=== PATIENT | female | born 1990 | race Caucasian/White ===

== ENCOUNTER 2022-02-19 00:34 | Day surgery (SDC) | payer OTHER, SELFPAY ==
[2022-02-18 09:45] VITALS: BMI 17.2
--- NOTE | 2022-02-18 09:56 | PC.NURSE ---
Report to the Outpatient Waiting Room, entrance under the green pavilion located off [facility], at time 0600 on date 02/19/22. OR Time: 0730. - You and your visitor will be asked to self-screen and do not enter if you have any COVID symptoms. - Only one visitor and NO children visitors are allowed at this time. - The patient visitor is requested to leave or wait in car when not with patient due to restrictions. - A mask is required within the hospital. Patients may have clear liquids (water, carbonated beverages, clear teas, apple juice) until 3 hours prior to surgery with a maximum of 20 ounces. - No food from midnight until time of surgery Take the following medications with a SIP of water the morning of surgery: N/A Medications to discontinue per physician: N/A Date to take last dose: N/A Please no make-up, nail faroese, hairspray, perfume, deodorant, or body powder the day of surgery. No jewelry (including any body piercings) or valuables the day of surgery, leave them at home. Please take a shower or bath the night before, or the morning of, surgery with an antibacterial soap. Wear comfortable, loose fitting clothing. - Jewelry must be removed prior to entering the operating room. Rings and piercings that are not removed may be cut off. - The hospital will not accept responsibility for valuables. - Please leave all valuables, including medications, at home the day of surgery. If you are going home after surgery, a licensed newspaper delivery driver must drive you home. - NO public transportation without another adult. - We recommend that an adult stay with you for 24 hours following discharge. - We also recommend that you do not drive, make important decision, drink alcoholic beverages, or take any drugs that were not prescribed by your health care provider for at least 24 hours after your discharge time. Follow any additional instructions given to you from your surgeon. If you or anyone in your household have experienced Covid symptoms in the past week, please notify your surgeon or the nurse liaison at the phone number below for possible testing. Telephone instructions given to PT- FELICIANO and asked if any additional questions and then verbalized understanding. Patient advised to call surgeon office or pre surgery nurse liaison [phone] if any additional questions.
--- NOTE | 2022-02-18 11:20 | P.PNAN_ITS ---
Anes - Initial Pre Proc Eval Procedure: Operation Date: 02/19/22 07:30 Proposed Procedures p Diagnostic Laparoscopy with Chromopertubation - Ge Mae MD Date/Time: 02/18/22 11:20 Surgeon: Ge Mae MD Pre Op Diagnosis: pelvic pain Patient Data Age: 31 Gender: F Height: 1.7 m Weight: 49.9 kg Allergies Allergy/AdvReac Type Severity Reaction Status Date / Time No Known Allergies Allergy Verified 02/19/22 06:27 Home Medications Medication Instructions Recorded Confirmed Type No Home Medications 02/18/22 02/19/22 History Patient hx anesthesia problems: none Family hx anesthesia problems: none Results Review: All pre-operative results and documents have been reviewed as part of the pre- operative evaluation. [facility] Social History Social History Smoking status: Never smoker Alcohol intake: current Drinks per week: 2 Substance use: never Substance use type: does not use Living arrangements: with family Spiritual care concerns: No Anes - Eval Final PreProcedure Day of Procedure 02/18/22 11:20 Patient weight: normal Heart: regular rate and rhythm Lungs: clear to auscultation and normal air movement Airway: Mallampati scale class II Neurological: alert and oriented Last oral intake: >/= 8 hours ASA classification: II Emergent: no Anesthetic plan: proceed Anesthesia type and monitoring: general ETT Results Review: All pre-operative results and documents have been reviewed as part of the pre- operative evaluation. Informed Consent: The patient's anesthetic plan and its attendant risks and benefits were discussed with the patient/family/POA. Questions were solicited and answers provided to the satisfaction of the patient/family/POA.
--- NOTE | 2022-02-18 15:03 | PM.IMHP ---
H&P: HPI History of Present Illness Date/Time: 02/18/22 15:03 Chief Complaint: dysmenorrhea infertility Narrative: 31 yo G0 who presents for diagnostic laparoscopy and chromopertubation for evaluation of dysmenorrhea and infertility. Pt has been trying to conceive for the past 12 months. She reports painful heavy menses. Pt has had an unremarkable pelvic US. Pt reports multiple symptoms of endometriosis. Review of Systems Cardiovascular: Cardiovascular: Denies chest pain, Denies leg edema, Denies palpitations, Denies dyspnea and Denies dyspnea on exertion Respiratory: Respiratory: Denies cough, Denies dyspnea and Denies dyspnea on exertion Gastrointestinal: Gastrointestinal: Denies abdominal pain, Denies constipation, Denies diarrhea, Denies nausea and Denies vomiting Genitourinary: Genitourinary: Denies hematuria, Denies urinary frequency, Denies dysuria, Denies pelvic pain, Denies urinary incontinence and Denies vaginal discharge Neurologic: Reports system reviewed and no additional complaints, except as documented Psychiatric: Psychiatric: Reports no additional psychiatric complaints Endocrine: Endocrine: Denies palpitations [facility] Social History Social History Smoking status: Never smoker Alcohol intake: current Drinks per week: 2 Substance use: never Substance use type: does not use Living arrangements: with family Spiritual care concerns: No Meds Home Medications and Allergies Home Medications Medication Instructions Recorded Confirmed Type No Home Medications 02/18/22 02/18/22 History Allergies Allergy/AdvReac Type Severity Reaction Status Date / Time No Known Allergies Allergy Verified 02/18/22 09:44 Exam Const: General: no acute distress Eyes: EOM: EOMs intact bilaterally Neck: Neck: supple Thyroid: thyroid normal Chest: Breast/axilla inspection: normal inspection of the breasts Breast/axilla palpation: normal palpation of the breasts, normal palpation of the axillae and no axillary lymphadenopathy Resp: Effort & Inspection: normal respiratory effort Auscultation: clear to auscultation bilaterally Cardio: Rate: regular rate Rhythm: regular rhythm GI: Inspection: non-distended GI Palp: Yes Soft to palpation, No Tenderness to palpation present (GI) and No Guarding due to palpation present (GI) Auscultation: normal bowel sounds : General: No bladder normal to palpation External Female Exam: normal external appearance Speculum Exam - Vagina: normal vaginal discharge and No vaginal bleeding Speculum Exam - Cervix: nontender Bimanual exam- vagina & uterus: No bladder normal to palpation and No Cervical tenderness present OB/external & speculum: No vaginal bleeding Skin: General skin exam: normal color and no rashes or lesions noted Neuro: Cognition (Neuro): normal cognition Speech: normal speech Extrem: General: normal to inspection and no edema Psych: Mental Status: mental status grossly normal Affect: normal affect Assessment and Plan Assessment and plan (1) Dysmenorrhea: Code(s): N94.6 - Dysmenorrhea, unspecified Status: Acute Assessment and Plan: Pt reports painful heavy menses pt declines hormonal contraceptives as she would like to conceive Pt symptoms consistent with endometriosis plan for diagnostic laparoscopy with possible fulguration of endometriosis (2) Female infertility: Code(s): N97.9 - Female infertility, unspecified Status: Acute Assessment and Plan: Pt has been trying to conceive for 12 months. will plan for chromopertubation at the time of diagnostic laparoscopy
[2022-02-19] VITALS (9 sets, daily range): BP systolic 89–117; BP diastolic 53–69; PULSE 39–77; RESP 12–16; TEMP 36.2–36.9; O2SAT 100
[2022-02-19] MEDS: ACETAMINOPHEN 500 MG TABLET 1000 MG PO (06:49)
[2022-02-19] MEDS: LACTATED RINGERS 1,000 ML 30 ML IV CONT ×2 (06:51→08:33)
[2022-02-19] MEDS: KETOROLAC 15 MG/ML VIAL (*BKC) IV PUSH (06:53)
[2022-02-19 07:01] LABS: Hematocrit 43.5 % (37.0-47.0); Hemoglobin 14.5 g/dL (12.0-15.0); Mean Corpuscular HGB Conc 33.3 g/dl (32-36); Mean Corpuscular Hemoglobin 32.4 pg (26-34); Mean Corpuscular Volume 97.1 fl (80-100); Mean Platelet Volume 10.1 fl (7.4-10.4); Platelet Count Result 206 k/mm3 (150-375); Red Blood Count 4.48 M/mm3 (4.2-5.4); Red Cell Distribution Width 11.6 % (11.5-14.5); White Blood Count 3.8 K/mm3 (4.5-10.0)
--- NOTE | 2022-02-19 07:18 | WPDHPUPDATE1 ---
History and Physical Update Update Date/Time: 02/19/22 07:18 History and Physical has been reviewed, including an updated exam of the patient. There are NO changes in the patient's condition. Risks, benefits, and alternatives have been discussed and questions answered. Patient agrees to proceed with procedure.
[2022-02-19] MEDS: LIDO 1%/EPINEPHRINE 1:100,000 50 ML VIAL 10 ML INFILTRATE (07:48)
[2022-02-19] MEDS: fentaNYL CITRATE INJ (*CRX) 100 MCG/2 ML VIAL 25 MCG IV PUSH ×4 (08:29→08:57)
--- NOTE | 2022-02-19 08:32 | W.PM.PROC2 ---
Procedure Note - Detailed Date of Procedure 02/19/22 Pre-op Diagnosis pelvic pain dysmenorrhea infertility Post-op Diagnosis Same Procedure Performed diagnostic laparoscopy, fulguration of endometriosis, chromopertubation Surgeon Ge Mae MD Anesthesia General Indications pelvic pain dysmenorrhea infertility Findings approximately 4 small areas of visible gunpowder lesions on the peritoneum in the posterior cul de sac. Normal appearing fallopian tubes and ovaries bilaterally. Normal appearing uterus. Bilateral spill of dye during chromopertubation Description of Procedure The patient was taken to the operating room where general endotracheal anesthesia was undertaken and found to be adequate. She was then prepped and draped in the dorsal lithotomy position and placed in adjustable stirrups. A pre-operative team brief and a time out were completed. A catheter was placed to drain the bladder. Retractors were placed placed in the vagina and the cervix was identified. An acorn uterine manipulator was placed. Attention was then turned to the abdomen which was anesthetized umbilically with injected anesthestic. A 5 mm skin incision was made in the umbilicus. A 5 mm optical trocar was then placed with direct camera visualization of the abdominal layers during placement. The trocar stylet was removed and the camera was used to verify intra-abdominal placement. CO2 insufflation was then connected and resumed. The pelvis was inspected. A left lower quadrant 5 mm port was placed, in addition to a right lower quadrant 5mm port in the standard fashion after using local anesthetic. The abdomen and pelvis were then surveyed. There were 4 small bartolome of superficial gunpowder lesions in the posterior cul de sac. No signs of endometriomas. No adhesive disease visualized. The gunpowder lesions were excised from the peritoneum with cold laparoscopic scissors. Peritoneum specimen was sent for pathology. Minimal bleeding from biopsy sites. The surgical field was thoroughly irrigated using normal saline. All surgical beds were noted to be hemostatic. Additional survey was performed and no further visible lesions were identified. The appendix was visualized and appeared grossly normal. At this point, chromopertubation was performed. A diluted solution of methylene blue was injected through the uterine manipulator. Spill of dye was noted bilaterally from the fallopian tubes. Procedure was ended at this time. Sponge, lap and needle counts were correct. All skin incisions were closed with 4-0 Vicryl suture subcuticularly. The uterine manipulator was removed from the uterus. Hemostasis of the cervix was noted. The urinary catheter was removed. The patient was taken out of dorsal lithotomy position. Anesthesia was reversed. The patient was taken to the PACU. Estimated Blood Loss 10 Urine Output 50 Pathology Yes (peritoneal biopsies) Complications No immediate complications Condition Stable Disposition Same day
[2022-02-19] MEDS: ONDANSETRON INJ 4 MG/2 ML VIAL IV PUSH (09:38)
[2022-02-19] MEDS: SCOPOLAMINE 1.5 MG PATCH TRANSDERM (10:07)
[2022-02-19] MEDS: HALOPERIDOL LACTATE 5 MG/ML VIAL 1 MG IV PUSH (10:07)
--- NOTE | 2022-02-19 11:07 | SUR.PHASEII ---
pt nausea is better and pain is tolerable. discharged home with .
== END 2022-02-19 10:55 | disposition home or self-care (01) ==
PROVIDERS: PCP Internal Medicine; Visit Provider Student in an Organized Health Care Education/Training Program
PROC: (CPT 49320; principal; 2022-02-19 07:30)
DX: R10.2 Pelvic and perineal pain (principal); N94.6 Dysmenorrhea, unspecified; N97.9 Female infertility, unspecified; N80.3 Endometriosis of pelvic peritoneum
CPT/HCPCS: 58662; 36415; 85027; 86850; 86900; 86901; 88305; A9270; J1100; J1630; J1885; J2250; J2405; J2704; J2710; J3010; J7030; J7120; Q9968

== ENCOUNTER 2022-12-21 05:20 | Inpatient (IN) | payer OTHER, SELFPAY ==
[2022-12-21] VITALS (115 sets, daily range): BP systolic 71–164; BP diastolic 25–138; PULSE 48–204; RESP 16; TEMP 36.6–37.2; O2SAT 94–100; BMI 21.4
--- NOTE | 2022-12-21 06:22 | LDADM ---
This patient, Chelsea Siddiqi, was admitted to Labor/Delivery/Recovery 107 on 12/21/22 at 05:20. Plans for labor, pain management and were discussed with patient. Patient/family oriented to hospital policies and general routines including ID bracelet, bed and alarms, visiting hours, pain management, procedures, bathroom and other care routines, personal items, smoking policy, room service/diet and guest tray routines, infant security routines, and visiting hours. Patient/Family are encouraged to report perceived risks to care and to ask questions if they do not understand what they are told or what they should do. See OBIX for further documentation.
[2022-12-21 06:23] LABS: Basophils Percent Auto 0.3 % (0.2-1.2); Eosinophils Absolute Auto 0.1 K/mm3 (0-0.3); Eosinophils Percent Auto 0.6 % (0-4.4); Hematocrit 45.3 % (37.0-47.0); Hemoglobin 15.1 g/dL (12.0-15.0); Immature Granulocyte Absolute 0.04 K/mm3 (0.00-0.031); Immature Granulocyte Percent A 0.4 % (0-0.5); Lymphocytes Absolute Auto 1.41 K/mm3 (0.9-3.2); Lymphocytes Percent Auto 13.6 % (18.3-44.2); Mean Corpuscular HGB Conc 33.3 g/dl (32-36); Mean Corpuscular Hemoglobin 31.5 pg (26-34); Mean Corpuscular Volume 94.6 fl (80-100); Monocytes Absolute Auto 0.5 K/mm3 (0.1-0.6); Monocytes Percent Auto 4.9 % (2.6-8.5); Neutrophils Absolute Auto 8.3 K/mm3 (1.3-6.7); Neutrophils Percent Auto 80.2 % (45.5-73.1); Platelet Count Result 197 k/mm3 (150-375); Red Blood Count 4.79 M/mm3 (4.2-5.4); Red Cell Distribution Width 13.8 % (11.5-14.5); White Blood Count 10.3 K/mm3 (4.5-10.0)
[2022-12-21] MEDS: LACTATED RINGERS 1,000 ML 125 ML IV CONT ×3 (06:25→07:44)
--- NOTE | 2022-12-21 06:45 | WPDANESEPPF ---
Anes - Initial Pre Proc Eval Procedure: Labor Epidural Date/Time: 12/21/22 06:45 Surgeon: Ge Mae MD Pre Op Diagnosis: Labor pain Pre Op Diagnosis: contractions Patient Data Age: 32 Gender: F Height: Weight: Last Vital Signs Pulse 58 L 12/21/22 06:31 BP 93/58 L 12/21/22 06:31 Pulse Ox 100 12/21/22 06:41 O2 Del Method Room Air 12/21/22 06:21 Allergies Allergy/AdvReac Type Severity Reaction Status Date / Time No Known Allergies Allergy Verified 12/17/22 08:24 Home Medications Medication Instructions Recorded Confirmed Type [id number] fum 65 mg 1 pkg PO DAILY 07/12/22 11/26/22 History iron-folic acid 1 mg-dha 250 mg oral whitney Laboratory Tests 12/21/22 06:08 WBC 10.3 H K/mm3 (4.5-10.0) RBC 4.79 M/mm3 (4.2-5.4) Hgb 15.1 H g/dL (12.0-15.0) Hct 45.3 % (37.0-47.0) MCV 94.6 fl (80-100) MCH 31.5 pg (26-34) MCHC 33.3 g/dl (32-36) RDW 13.8 % (11.5-14.5) Plt Count 197 k/mm3 (150-375) MPV 10.0 fl (7.4-10.4) Immature Gran % (Auto) 0.4 % (0-0.5) Neut % (Auto) 80.2 H % (45.5-73.1) Lymph % (Auto) 13.6 L % (18.3-44.2) [place] % (Auto) 4.9 % (2.6-8.5) Eos % (Auto) 0.6 % (0-4.4) Baso % (Auto) 0.3 % (0.2-1.2) Lymph # (Auto) 1.41 K/mm3 (0.9-3.2) [place] # (Auto) 0.5 K/mm3 (0.1-0.6) Eos # (Auto) 0.1 K/mm3 (0-0.3) Baso # (Auto) 0.0 K/mm3 (0.0-0.1) Abs Immat Gran (auto) 0.04 H K/mm3 (0.00-0.031) Absolute Neuts (auto) 8.3 H K/mm3 (1.3-6.7) Absolute Nucleated RBC 0.0 K/mm3 (0.0-0.012) Nucleated RBC % 0.0 % (0.0-0.2) RPR Pending Patient hx anesthesia problems: none Family hx anesthesia problems: none Results Review: All pre-operative results and documents have been reviewed as part of the pre-operative evaluation. [facility] Past Medical History Medical History Suppression of menses Family History Family History Father Diabetes mellitus Legal Guardian No problems noted. 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 Informed Consent: The patient's anesthetic plan and its attendant risks and benefits were discussed with the patient/family/POA. Questions were solicited and answers provided to the satisfaction of the patient/family/POA.
--- NOTE | 2022-12-21 07:05 | WPDANESEPN ---
Anes - Epidural Procedure Note Date/Time: 12/21/22 07:05 Consent: I have discussed with the patient/family/POA, the placement of an epidural catheter and the use of epidural narcotic/local anesthetic for labor analgesia and/or postoperative pain management, including associated potential risks, benefits, complications and side effects. I have discussed alternative methods of labor analgesia and/or postoperative pain management. The patient/family/POA, understand(s) and wish(es) to proceed with epidural narcotic/local anesthetic for labor analgesia and/or postoperative pain management. Time-Out: A pre-procedural Time-Out was completed immediately before starting the procedure and confirmed: Patient Identification, Site, Procedure, Patient Position and the Availability of Requisite Equipment. Clinical Indications: Labor Epidural Epidural Insertion Note Patient position: sitting Skin prep: chlorhexidine and sterile drape Needle: 18g Tuohy-Schliff Catheter: 20g Unstyleted Technique: Loss of resistance. Level of insertion: L3/4 Catheter skin hyacinth (cm): 9 Length in epidural space (cm): 4 Skin anesthesia: lidocaine 1% Test dose: 1.5% Lidocaine with [id number] Epi, negative for subarachnoid Inj and negative for intravascular Inj Time of test dose: 06:57 Observations: tolerated well Complications: none
[2022-12-21] MEDS: PHENYLEPHRINE 1,000 MCG/10 ML SYRINGE 100 MCG IV PUSH (07:28)
[2022-12-21] MEDS: OXYTOCIN 30 UNITS/NS 500 ML 30 UNITS/500 ML BAG 999 UNITS IV CONT (11:53)
--- NOTE | 2022-12-21 12:18 | P.PCNOB_ITS ---
OB - Delivery Note Procedure Intrapartal Events: Decelerations and Ineffetive Pushing/Maternal Exhaustion Induction method: None Delivery augmentation: Rupture of Membranes and Pitocin Delivery monitor: External FHT and External Uterine Route of delivery: Indication for instrumentation: maternal exhaustion Episiotomy description: None Laceration Description: Perineal - 2nd Degree Delivery repair: vicryl and chromic Specimen: No Quantitative Blood Loss (ml): 200 Anesthesia type: Epidural Disposition: Floor Complications: None Narrative: patient prepped usual procedure. Maternal effort brought the baby to +1 position and due to continued bradycardia decelerations vacuum was placed and then pushed for 2 more contractions, at which time the vacuum was removed. One more push delivered the vertex and the rest of baby without difficulty. Cord was clamped cut and baby was passed to the public employment mediator who was in attendance. Placenta delivered spontaneously. Second-degree laceration was noted with partial third-degree extension. Using 0 Vicryl interrupted sutures the rectal sphincter was approximated. Vaginal tissue was then approximated using 2-0 chromic in a running interlocking manner, deep tissue was approximated using 2-0 chromic, and the subcuticular manner was then used to approximate the skin edges. There was no significant bleeding, uterus well contracted. Immediate postoperative condition of mother and baby were both excellent. Baby Weeks of gestation at delivery: 40 gender: Female Weight (pounds): 8 Weight (ounces): 0 presentation: vertex position: Right Occiput Anterior Placenta delivery description: Spontaneous Cord Vessel Description: 3 Vessels score one minute: 8 score five minutes: 9 AMG Delivery Billing Delivery Delivery: Delivery Charge
--- NOTE | 2022-12-21 12:23 | WPDHPUPDATE1 ---
History and Physical Update Update Date/Time: 12/21/22 12:23 History and Physical has been reviewed, including an updated exam of the patient. There are NO changes in the patient's condition. Risks, benefits, and alternatives have been discussed and questions answered. Patient agrees to proceed with procedure.
--- NOTE | 2022-12-21 12:23 | WPDOBADMIT ---
Obstetrics - Admit Note Admission Note: record reviewed. No pertinent additions to the history and/or any subsequent changes in the physical findings that are not consistent with the expected course of the were found. Additions to the history and/or subsequent changes in the physical findings follow. None.
[2022-12-21] MEDS: OXYTOCIN 30 UNITS/NS 500 ML 30 UNITS/500 ML BAG 125 UNITS IV CONT (12:28)
[2022-12-21] MEDS: ACETAMINOPHEN 325 MG TABLET 650 MG PO (14:37)
--- NOTE | 2022-12-21 15:00 | PC.NURSE ---
Patient transferred to post room #280 via wheelchair. Support person present. Oriented to unit, room, information board, rooming in, admission packet and security measures. Patient verbalizes understanding. Per pt request, she would like her vitals and assessment done in an hour so she and baby can rest.
[2022-12-22] MEDS: IBUPROFEN 600 MG TABLET PO (00:11)
[2022-12-22 04:15] VITALS: BP 96/57; PULSE 62; RESP 14; TEMP 36.3; O2SAT 100
[2022-12-22 05:07] LABS: Hemoglobin 11.1 g/dL (12.0-15.0)
[2022-12-22 07:40] VITALS: BP 106/69; PULSE 72; RESP 16; TEMP 36.4; O2SAT 100
[2022-12-22] MEDS: DOCUSATE SODIUM 100 MG CAPSULE PO (07:45)
[2022-12-22] MEDS: MULTIVIT/MIN/PREN/FOL AC/IRON TABLET 1 TAB PO (07:45)
--- NOTE | 2022-12-22 08:01 | WPDANLDPN2 ---
Anes-Prog Note L&D Date/Time: 12/22/22 08:01 Comfortable throughout: labor and delivery Neuraxial method: epidural Epidural/Spinal procedure site: clean & non-tender Neuro status: Neuro function grossly intact. Cardiovascular status: normal Respiratory status: normal Airway patency: baseline Mental status: baseline Post-Op hydration status: normal Vital Signs: Last Vital Signs Temp 97.3 F L 12/22/22 04:15 Pulse 62 12/22/22 04:15 Resp 14 12/22/22 04:15 BP 96/57 L 12/22/22 04:15 Pulse Ox 100 12/22/22 04:15 O2 Del Method Room Air 12/21/22 06:21 Pain score (VAS): 0 I/O: Intake & Output 12/21/22 12/22/22 12/22/22 23:59 07:59 15:59 Intake Total 500 Balance 500 Post-procedural complaints: none Patient feedback: Patient satisfied with anesthetic care.
--- NOTE | 2022-12-22 09:58 | PM.OBDSVD ---
DS: Admitting Diagnosis Discharge Date 12/22/2022 Admitting Diagnosis DS: Discharge Diagnosis Discharge Diagnosis (1) , delivered: Code(s): O80 - Encounter for full-term uncomplicated delivery Status: Acute OB - DS: Summary OB Procedures : None OB Procedures Intrapartum: Spontaneous Vag Delivery OB Procedures: : None Time Spent with Patient Time attestation: Total time spent providing and/or coordinating discharge services: DS: Data Data Completed and Pending Labs on day of discharge: Labs from last 24 hours 12/22/22 04:07 Hgb 11.1 L D Hct 33.0 L Discharge Plan Discharge Discharging Clinician: Alex Moreno Patient Disposition: Home, Self-Care Activity: as tolerated Diet: as tolerated Patient Instructions: Antibiotic Form Stand Alone Forms: General Discharge Information Follow-up/Referrals: Ge Mae MD [Physician] - 3 Weeks Discharge Medications: Continued vit 93-[id number]-[id number]-dha 65-1-250 mg combo pack 1 pkg PO DAILY Date of admission: 12/21/22 05:20 Primary Care Provider: TonyMatthew Admitting Provider: Ge Mae Attending physician on admission: Ge Mae Condition: Stable
--- NOTE | 2022-12-22 13:11 | PC.NURSE ---
Patient viewed the discharge video Mother & Baby Care, The First Two Weeks . Patient was given the opportunity and encouraged to ask questions. Patient verbalized understanding of information shared and has been given the mother/baby guide for home reference.
[2022-12-23 08:05] LABS: Rapid Plasma Reagin Non-Reactive (NonReactive)
[2022-12-23 08:28] VITALS: BP 109/62; PULSE 66; RESP 18; TEMP 36.8; O2SAT 100
== END 2022-12-22 15:50 | disposition home or self-care (01) | DRG 807 ==
LOC: ANHOB2 12-22 10:56 → ANHLDR 12-24 08:14 → ANHOB2 12-24 08:14
PROVIDERS: Admitting Provider Obstetrics & Gynecology; PCP Internal Medicine; Visit Provider Obstetrics & Gynecology
DX: O76 Abnormality in fetal heart rate and rhythm complicating labor and delivery (principal); O70.1 Second degree perineal laceration during delivery; Z37.0 Single live birth; Z3A.40 40 weeks gestation of pregnancy
CPT/HCPCS: 36415; 85014; 85018; 85025; 86592; 86850; 86900; 86901; A9270; J2370; J2590; J2795; J7120

== ENCOUNTER 2024-04-30 10:24 | Outpatient (CLI) | payer OTHER, SELFPAY ==
--- NOTE | ~2024-04-30 | US_ITS ---
EXAMINATION: US OB <=14 wk fetus w TV DATE: 04/30/2024 11:22 INDICATION: Establish dating of first trimester . TECHNIQUE: Real-time pelvic ultrasound utilizing both a transvaginal and transabdominal probe was pe rformed. The interpreting radiologist was not present for the study. COMPARISON: None. FINDINGS: The uterus measures 10.8 x 6.6 x 8.4 cm. There is an intrauterine gestational sac. A yolk sac and fe conchis pole are identified. The crown rump length measures 2.0 cm, which correlates with an estimated ge stational age of 8 weeks and 4 days. heart motion is identified measuring 164 beats per minute (bpm) by M-mode Doppler. The right ovary measures 3.1 x 2.6 x 2.3 cm. The left ovary measures 2.3 x 1.3 x 1.9 cm. Vascular matthias w identified in both ovaries on color Doppler. There is a small amount of anechoic free fluid in the cul-de-sac. IMPRESSION: 1. Single living fetus with heart rate of 164 bpm. 2. Gestational age by ultrasound of 8 weeks 4 day(s) +/- 5 day(s) with ultrasound estimated date of delivery (F[facility]TIM[facility]) of 12/06/2024. Reviewed, dictated and finalized at location A. IMPRESSION: 1. Single living fetus with heart rate of 164 bpm. 2. Gestational age by ultrasound of 8 weeks 4 day(s) +/- 5 day(s) with ultraso und estimated date of delivery (FÁTIMA) of 12/06/2024.
== END 2024-04-30 10:25 | disposition home or self-care (01) ==
PROVIDERS: PCP Internal Medicine; Visit Provider Student in an Organized Health Care Education/Training Program
DX: N94.89 Other specified conditions associated with female genital organs and menstrual cycle (principal)
CPT/HCPCS: 76801; 76817

== ENCOUNTER 2024-10-22 10:19 | Outpatient (CLI) | payer OTHER, SELFPAY ==
--- NOTE | ~2024-10-22 | US_ITS ---
EXAMINATION: US OB follow up DATE: 10/22/2024 10:42 INDICATION: Encounter for supervision of normal during third trimester. TECHNIQUE: Real-time ultrasound of the pelvis was performed. The interpreting radiologist was not pre sent for the study. COMPARISON: None. FINDINGS: There is a single living fetus in vertex presentation. The placenta is anterior and not low-lying. F etal heart rate is 129 beats per minute (bpm). The amniotic fluid index is 17.5 cm, which is normal (5th%-95%: 8.1-24.8 cm at 34 weeks estimated gestational age). The following biometric data were obtained: BPD: 8.8 cm -> 35 weeks 3 days Head circumference: 31.3 cm -> 35 weeks 1 days Abdominal circumference: 30.3 cm -> 34 weeks 2 days Femur length: 6.8 cm -> 34 weeks 6 days These measurements are concordant. Head circumference to abdominal circumference ratio: 1.03 (normal range 0.93-1.11). Estimated weight: 2474 g (+/-) 371 g or 5 lbs. 7 oz. (+/-) 13 oz. IMPRESSION: 1. Single living fetus in vertex presentation with heart rate of 129 bpm. 2. Normal amniotic fluid index of 17.5 cm. 3. Estimated weight is 63rd percentile by Hadlock criteria when 12/03/2024 is used as the estimat ed date of delivery (FÁTIMA). Please correlate with clinical information or earlier ultrasounds for most accurate FÁTIMA. Reviewed, dictated and finalized at location A. IMPRESSION: 1. Single living fetus in vertex presentation with heart rate of 129 bpm. 2. Normal amniotic fluid index of 17.5 cm. 3. Estimated weight is 63rd percentile by Hadlock criteria when 12/03/2024 is used as the estimated date of delivery (FÁTIMA). Please correlate with clinical information or earlier ultrasounds for most accurate FÁTIMA.
== END 2024-10-22 10:20 | disposition home or self-care (01) ==
LOC: MICIMG 10:20
PROVIDERS: PCP Student in an Organized Health Care Education/Training Program; Visit Provider Student in an Organized Health Care Education/Training Program
DX: Z34.90 Encounter for supervision of normal pregnancy, unspecified, unspecified trimester (principal)
CPT/HCPCS: 76816

== ENCOUNTER 2024-12-04 18:51 | Inpatient (IN) | payer OTHER, SELFPAY ==
[2024-12-04] VITALS (74 sets, daily range): BP systolic 84–136; BP diastolic 38–102; PULSE 40–133; O2SAT 70–100; BMI 22.1
--- OUTSIDE RECORDS SUMMARY | 2024-12-04 19:10 | XMS_ITS | Referral Summary ---
Author Organization [facility] [address] Address [address] [place] [address] Phone Care Team Providers Care Lead Nurse Name Role Phone Matthew Pearce MD Primary Care Provider [phone] Hubert Owen MD Unavailable [phone] Allergies No known active allergies Medications cholecalciferol (VITAMIN D-3) 25 mcg (1,000 unit) tablet Take 1 tablet (1,000 Units total) by mouth daily Active omega 7-yhr-wnh-fish oil 60-90-500 mg capsule,delayed release(DR/EC) Take 500 mg by mouth daily Active ciprofloxacin (CILOXAN) 0.3 % ophthalmic solution Administer 1 drop into the left eye every 2 (two) hours Administer 1 drop, every 2 hours, while awake, for 2 days. Then 1 drop, every 4 hours, while awake, for the next 5 days. 5 mL 4 Active Active Problems Problem Noted Date Diagnosed Date Raynaud's disease without gangrene 10/30/2018 Overview (11/06/2018): Labs (10/30/18): low C4 (14) AVISE (10/30/18): negative Assessment & Plan (11/20/2018 12:08 PM CDT): Serologies revealed a slightly low C4 (14), but were otherwise unremarkable. 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 Denies any other CTD symptoms. Based on unremarkable labs, symptoms do not appear to be related to any underlying CTD. Recommend patient follow with dermatology for biopsy of her rash. Follow up as needed for any new or worsening symptoms. Seen with Dr. Owen. 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 Reports her fingers and toes go numb in the cold and recently her fingers turned white. Has seen dermatology who have not done a biopsy. Denies any other CTD symptoms. Denies joint pain, swelling, or stiffness. Normal capillary refill in bilateral hands and feet, however feet are cold on exam. Symptoms and exam are suspicious for Raynaud's and less suspicious for scleroderma. Will order appropriate serologies to further evaluate. If work up is unremarkable, may consider follow up with dermatology for biopsy in the future. Follow up in 2 weeks. Sooner if needed. Seen with Dr. Owen. 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 file Not on file Not on file Last Filed Vital Signs Vital Sign Reading Time Taken Comments Blood Pressure 108/58 07/08/2023 5:53 PM WATER QUALITY TECHNICIAN Pulse 50 07/08/2023 5:53 PM WATER QUALITY TECHNICIAN Temperature 36.5 C (97.7 F) 07/08/2023 5:53 PM WATER QUALITY TECHNICIAN Respiratory Rate 22 07/08/2023 5:53 PM WATER QUALITY TECHNICIAN Oxygen Saturation 98% 07/08/2023 5:53 PM WATER QUALITY TECHNICIAN Inhaled Oxygen Concentration - - Weight 52.2 kg (115 lb) 07/08/2023 5:53 PM WATER QUALITY TECHNICIAN Height 171.5 cm (5' 7.5) 07/08/2023 5:53 PM WATER QUALITY TECHNICIAN Body Mass Index 17.75 07/08/2023 5:53 PM WATER QUALITY TECHNICIAN Plan of Treatment Not on file Procedures Procedure Name Priority Date/Time Associated Diagnosis Comments PAP AND HIGH RISK HPV, REFLEX TO GENOTYPING Routine 07/27/2021 11:22 AM WATER QUALITY TECHNICIAN Screening for malignant neoplasm of the cervix from Last 3 Months or Most Recently Relevant to Health Maintenance Results * Pap and High Risk HPV, reflex to Genotyping (07/27/2021 11:22 AM WATER QUALITY TECHNICIAN) Swab (Pap test) 07/27/2021 1 1:22 AM WATER QUALITY TECHNICIAN 07/27/2021 11:22 AM WATER QUALITY TECHNICIAN Narrative PATHOLOGY - 08/02/2021 2:27 PM WATER QUALITY TECHNICIAN [facility] Department of Pathology [address] [place] [address] Final Report with Addendum Note to Patients: This report may contain a detailed description of human tissue sent by a health care provider to the laboratory for pathologic evaluation. The content of this report is essential for diagnosis and may provide important critical findings. This information may be unfamiliar to patients to review without a medical professional present. It is advised that the patient review this report in the presence of a health care provider who can answer questions and explain the details. Patient Name: CHELSEA SIDDIQI Address: [address] [place] [address] Gender: F : 1990 (Age: 31) Service: Laboratory Location: Lab [facility] #: [id number] Patient Type: Ref Lab Taken: 07/27/2021 Received: 07/27/2021 Accessioned:: 07/30/2021 Reported: 08/02/2021 Physician(s): SAMMY Palomo WHNP Diagnosis: Source of Specimen: SCREENING THIN PREP IMAGED PAP w/ HPV Specimen Adequacy: - Satisfactory for evaluation; endocervical/transformation zone component present General Category: - Negative for intraepithelial lesion or malignancy JORGE Henderson(ASCP) JORGE Meraz(ASCP) Report Electronically Reviewed and Signed Out By JORGE Meraz(ASCP) 08/02/2021 14:27:23 Addenda: HPV Test Interpretation NEGATIVE for types 16, 18, 31, 33, 35, 39, 45, 51, 52, 56, 58, 59, 66 and 68. Test performed utilizing Gen-Probe Aptima assay. JOREG Meraz(ASCP) Report Electronically Reviewed and Signed Out By JORGE Meraz(ASCP) 07/31/2021 14:11:28 Specimen(s) Received: A: SCREENING THIN PREP IMAGED PAP w/ HPV Clinical History: Last Menstrual Period: 07/10/2021 The Pap test is a screening test used to aid in the detection of cervical cancer and its precursors. It should not be the sole means by which malignant and premalignant lesions are diagnosed. Both false negative and false positive results may occur. It also has poor sensitivity for the detection of endometrial lesions and should not be used to evaluate suspected endometrial abnormalities. For these reasons it is most important to obtain Pap tests at regular intervals. The performance characteristics of some immunohistochemical stains, fluorescence in-situ hybridization tests and immunophenotyping by flow cytometry cited in this report (if any) were determined by the Surgical Pathology Department at [facility] as part of an ongoing corporate quality assurance manager program and in compliance with federally mandated regulations drawn from the Clinical Laboratory Improvement Act of 1988 (CLIA '88). Some of these tests rely on the use of analyte specific reagents and are subject to specific labeling requirements by the US Food and Drug Administration. Such diagnostic tests may only be performed in a facility that is certified by the Department of Health and Human Services as a high complexity laboratory under CLIA '88. The FDA has determined that such clearance or approval is not necessary. This test is used for clinical purposes. It should not be regarded as investigational or for research. Nevertheless, federal rules concerning the medical use of analyte specific reagents require that the following disclaimer be attached to the report: This test was developed and its performance characteristics determined by the Surgical Pathology Department [facility]. It has not been cleared or approved by the U. S. Food and Drug Administration. Megha Frias NP LAB CYTOLOGY ORDERABLES F inal Result PATHOLOGY [address] [place] [address] from Last 3 Months or Most Recently Relevant to Health Maintenance Insurance [facility] CLAIMS OFFICE [facility] CORE [facility] Care Teams Lead Nurse Relationship Specialty Start Date End Date Matthew Pearce MD PCP - General Internal Medicine 04/24/18 Hubert Owen MD [address] [address] Consulting Physician Rheumatology 10/06/18
--- OUTSIDE RECORDS SUMMARY | 2024-12-04 19:10 | XMS_ITS | Clinical Summary ---
Author Organization [facility] [address] Address [address] [place] [address] Phone Care Team Providers Care Ip Technology Transactions Attorney Name Role Phone Matthew Pearce MD Primary Care Provider [phone] Hubert Owen MD Unavailable Allergies No known active allergies Medications cholecalciferol (VITAMIN D-3) 25 mcg (1,000 unit) tablet Take 1 tablet (1,000 Units total) by mouth daily Active omega 7-ifv-eff-fish oil 60-90-500 mg capsule,delayed release(DR/EC) Take 500 [...] Sooner if needed. Seen with Dr. Owen. 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5) 07/08/2023 5:53 PM BREAD OVEN OPERATOR Body Mass Index 17.75 07/08/2023 5:53 PM BREAD OVEN OPERATOR Plan of Treatment Health Maintenance Due Date Last Done Comments Depression Screening 1990 Hepatitis C Screening 1990 Varicella Vaccines (1 of 2 - 13+ 2-dose series) 2002 DTaP/Tdap/Td Vaccine (7 - Tdap) 12/16/2013 12/17/2003, 06/26/1994, 12/02/1990, Additional history exists Cervical Cancer Screening 07/27/2022 07/27/2021 Regular Well Visit/Exam 18-64 07/27/2022 07/27/2021, 06/09/2020, 05/14/2019, Additional history exists Influenza Vaccine (Season Ended) 2025 05/21/1994 Hepatitis B Screening Completed 08/19/2000 , 03/21/2000, 01/25/2000 HPV Vaccines Aged Out No longer eligi ble based on patient's age to complete this topic Pneumococcal vaccine <65 Aged Out No longer eligible based on patient's age to complete this topic Procedures Procedure Name Priority Date/Time Associated Diagnosis Comments PAP AND HIGH RISK HPV, REFLEX TO GENOTYPING Routine 07/27/2021 11:22 AM BREAD OVEN OPERATOR Screening for malignant neoplasm of the cervix from Last 3 Months or Most Recently Relevant to Health Maintenance Results * Pap and High Risk HPV, reflex to Genotyping (07/27/2021 11:22 AM BREAD OVEN OPERATOR) Swab (Pap test) 07/27/2021 1 1:22 AM BREAD OVEN OPERATOR 07/27/2021 11:22 AM BREAD OVEN OPERATOR Narrative PATHOLOGY CH - 08/02/2021 2:27 PM BREAD OVEN OPERATOR [facility] Department of Pathology [address] [place], [place] [id number] Final Report with Addendum Note to Patients: [...] questions and explain the details. Patient Name: CHELESA SIDDIQI Address: [address] [place] [address] [address] Gender: F : 1990 (Age: 31) Service: Laboratory Location: Lab [facility] #: [id number] Patient Type: Ref Lab Taken: 07/27/2021 Received: 07/27/2021 Accessioned:: 07/30/2021 Reported: 08/02/2021 Physician(s): SAMMY Palomo WHNP Diagnosis: Source of Specimen: SCREENING THIN PREP IMAGED PAP w/ HPV Specimen Adequacy: - Satisfactory for evaluation; endocervical/transformation zone component present General Category: - Negative for intraepithelial lesion or malignancy JORGE Henderson(ASCP) JORGE Meraz(ASCP) Report Electronically Reviewed and Signed Out By ROSALIO MerazASCP) 08/02/2021 14:27:23 Addenda: HPV Test Interpretation NEGATIVE for types 16, 18, 31, 33, 35, 39, 45, 51, 52, 56, 58, 59, 66 and 68. Test performed utilizing Gen-Probe Aptima assay. JORGE Meraz(ASCP) Report Electronically Reviewed and Signed Out By ROSALIO MerazASCP) 07/31/2021 14:11:28 Specimen(s) Received: A: SCREENING THIN [...] determined by the Surgical Pathology Department at [facility] as part of an ongoing quality coordinator program and in compliance with federally mandated [...] characteristics determined by the Surgical Pathology Department [facility]. It has not been cleared or approved by the U. S. Food and Drug Administration. Megha Frias NP LAB CYTOLOGY ORDERABLES F inal Result PATHOLOGY [address] [place] [address] from Last 3 Months or Most Recently Relevant to Health Maintenance [facility] CORE [facility] CORE Care Teams Ip Technology Transactions Attorney Relationship Specialty Start Date End Date Matthew Pearce MD PCP - General Internal Medicine 04/24/18 Hubert Owen MD [address] [address] Consulting Physician Rheumatology 10/06/18
--- OUTSIDE RECORDS SUMMARY | 2024-12-04 19:10 | XMS_ITS | Clinical Summary ---
Author Organization [facility] Address [address] [facility] [address] [place] [address] Phone Care Team Providers Care Gate Person Name Role Phone Unavailable Primary Care Provider Unavailabl e Allergies No known active allergies Medications metoclopramide HCl (REGLAN) 10 mg tablet Take 1 Tablet (10 mg) by mouth every 6 hours as needed for Nausea/Emesis . 10 Tablet None 01/12/2017 Active traMADol (ULTRAM) 50 mg tablet Take 1-2 Tablets (50-100 mg) by mouth every 6 hours as needed for Pain, Moderate or Pain, Severe. 20 Tablet None 01/12/2017 Active Social History Tobacco Use Types Packs/Day Years Used Date Smoking Tobacco: Never Comments Unknown Sex and Gender Information Value Date Recorded Sex Assigned at Not on file Legal Sex Female 9:09 PM CDT Gender Identity Not on file Sexual Orientation Not on file Last Filed Vital Signs Vital Sign Reading Time Taken Comments Blood Pressure 110/72 01/12/2017 12:44 AM CDT Pulse - - Temperature 36.9 C (98.4 F) 01/12/2017 12:09 AM CDT Respiratory Rate 16 01/12/2017 12:44 AM CDT Oxygen Saturation 100% 01/12/2017 12:44 AM CDT Inhaled Oxygen Concentration - - Weight 52.2 kg (115 lb) 01/11/2017 9:18 PM CDT Height 170.2 cm (5' 7) 01/11/2017 9:18 PM CDT Body Mass Index 18.01 01/11/2017 9:18 PM CDT Plan of Treatment Health Maintenance Due Date Last Done Comments DTAP/TDAP/TD VACCINES (1 - Tdap) 2008 HEPATITIS B VACCINES (1 of 3 - 19+ 3-dose series) 2008 HPV/Cotest (21-29) 2010 CERVICAL CANCER SCREENING 2019 HPV/Cotest (30-65) 2019 PAP SMEAR 2019 INFLUENZA VACCINE (#1) 2024 HPV VACCINES Aged Out No longer eligi ble based on patient's age to complete this [place] [address] [employer]
--- OUTSIDE RECORDS SUMMARY | 2024-12-04 19:11 | XMS_ITS | CONTINUITY OF CARE DOCUMENT ---
Author Name milla loyola Address Unknown Organization [facility] Office Address [address] [place] [address] [address] [place] [address] Phone [phone] Care Team Providers Care Pipe Organ Tuner And Repairer Name Role Phone Onesimo SALMERON, Unavailable [phone]
[2024-12-04 19:27] LABS: Basophils Percent Auto 0.2 % (0.2-1.2); Eosinophils Absolute Auto 0.1 K/mm3 (0-0.3); Eosinophils Percent Auto 0.8 % (0-4.4); Hematocrit 39.9 % (37.0-47.0); Hemoglobin 12.5 g/dL (12.0-15.0); Immature Granulocyte Absolute 0.03 K/mm3 (0.00-0.031); Immature Granulocyte Percent A 0.3 % (0-0.5); Lymphocytes Absolute Auto 2.22 K/mm3 (0.9-3.2); Lymphocytes Percent Auto 24.1 % (18.3-44.2); Mean Corpuscular HGB Conc 31.3 g/dl (32-36); Mean Corpuscular Hemoglobin 27.4 pg (26-34); Mean Corpuscular Volume 87.3 fl (80-100); Mean Platelet Volume 10.2 fl (7.4-10.4); Monocytes Absolute Auto 0.6 K/mm3 (0.1-0.6); Monocytes Percent Auto 6.4 % (2.6-8.5); Neutrophils Absolute Auto 6.3 K/mm3 (1.3-6.7); Neutrophils Percent Auto 68.2 % (45.5-73.1); Platelet Count Result 239 k/mm3 (150-375); Red Blood Count 4.57 M/mm3 (4.2-5.4); Red Cell Distribution Width 13.5 % (11.5-14.5); White Blood Count 9.2 K/mm3 (4.5-10.0)
--- NOTE | 2024-12-04 19:54 | P.PNAN_ITS ---
Anes - Initial Pre Proc Eval Procedure: labor epidural Date/Time: 12/04/24 19:54 Surgeon: Ge Mae MD Pre Op Diagnosis: labor pain Pre Op Diagnosis: Labor Patient Data Age: 34 Gender: F Height: 1.7 m Weight: 64 kg Last Vital Signs Pulse 60 12/04/24 19:46 BP 108/61 12/04/24 19:46 Allergies Allergy/AdvReac Type Severity Reaction Status Date / Time No Known Allergies Allergy Verified 12/04/24 19:31 Home Medications ?Medication ?Instructions ?Recorded ?Confirmed ?Type [id number] fum 65 mg 1 pkg PO DAILY 07/12/22 11/23/24 History iron-folic acid 1 mg-dha 250 mg oral whitney choline 11/05/24 11/23/24 History magnesium 11/05/24 11/23/24 History Laboratory Tests 12/04/24 19:18 WBC 9.2 K/mm3 (4.5-10.0) RBC 4.57 M/mm3 (4.2-5.4) Hgb 12.5 g/dL (12.0-15.0) Hct 39.9 % (37.0-47.0) MCV 87.3 fl (80-100) MCH 27.4 pg (26-34) MCHC 31.3 L g/dl (32-36) RDW 13.5 % (11.5-14.5) Plt Count 239 k/mm3 (150-375) MPV 10.2 fl (7.4-10.4) Immature Gran % (Auto) 0.3 % (0-0.5) Neut % (Auto) 68.2 % (45.5-73.1) Lymph % (Auto) 24.1 % (18.3-44.2) Twiggs % (Auto) 6.4 % (2.6-8.5) Eos % (Auto) 0.8 % (0-4.4) Baso % (Auto) 0.2 % (0.2-1.2) Lymph # (Auto) 2.22 K/mm3 (0.9-3.2) Twiggs # (Auto) 0.6 K/mm3 (0.1-0.6) Eos # (Auto) 0.1 K/mm3 (0-0.3) Baso # (Auto) 0.0 K/mm3 (0.0-0.1) Abs Immat Gran (auto) 0.03 K/mm3 (0.00-0.031) Absolute Neuts (auto) 6.3 K/mm3 (1.3-6.7) Absolute Nucleated RBC 0.000 K/mm3 (0.0-0.012) Nucleated RBC % 0.0 % (0.0-0.2) HIV 1&2 Ab/P24 Ag 4thGn Pending Blood Type Pending Antibody Screen Pending Patient hx anesthesia problems: none Family hx anesthesia problems: none Results Review: All pre-operative results and documents have been reviewed as part of the pre- operative evaluation. [facility] Past Medical History Medical History Suppression of menses Family History Family History Father Diabetes mellitus Legal Guardian No problems noted. Mother Hypertension Social History Social History Smoking status: Never smoker Second hand tobacco smoke exposure: No Alcohol intake: current Drinks per week: 1 Substance use: never Substance use type: does not use Do You Feel Safe in your Home?: Yes Lack of Transportation: No Lack of Food: Never True Current Housing: I Have Housing Concerned About Future Housing: No Difficulty Paying Gas/Electric Bills: No Difficulty Paying for Meds: No Currently Unemployed: No Education: Master's Degree or Higher Difficulty w/ Childcare or Family Care: No Living arrangements: with family Additional living arrangements comments: 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 Informed Consent: The patient's anesthetic plan and its attendant risks and benefits were discus sed with the patient/family/POA. Questions were solicited and answers provided to the satisfaction of the patient/family/POA.
[2024-12-04 20:18] LABS: HIV 1/2 Ab P24 Ag Result Negative (Negative)
[2024-12-04 20:19] LABS: Syphilis IgG/IgM Antibody Non-Reactive (Nonreactive)
--- NOTE | 2024-12-04 20:44 | PM.IMHP ---
H&P: HPI History of Present Illness Date/Time: 12/04/24 20:44 Chief Complaint: contractions Narrative: Chelsea is a 34yo @ 39.5wks who presented to L&D with regular and painful contractions; found to be 6cm dilated, requesting epidural. She reports good movement. No vb or leakage of fluid. Her is complicated by: - AMA - H/o vacuum extraction 2/2 maternal exhaustion Review of Systems Constitutional: Constitutional: Denies chills, Denies fever(s) and Denies headache(s) Eyes: Eyes: Denies change in vision ENT: Denies headache(s) Cardiovascular: Cardiovascular: Denies chest pain and Denies dyspnea Respiratory: Respiratory: Denies dyspnea Gastrointestinal: Gastrointestinal: Reports abdominal pain Genitourinary: Genitourinary: Denies abnormal vaginal bleeding and Denies vaginal discharge Neurologic: Denies headache(s) Psychiatric: Psychiatric: Denies anxiety and Denies depression [facility] Past Medical History Medical History Suppression of menses Family History Family History Father Diabetes mellitus Legal Guardian No problems noted. Mother Hypertension Social History Social History Smoking status: Never smoker Second hand tobacco smoke exposure: No Alcohol intake: current Drinks per week: 1 Substance use: never Substance use type: does not use Do You Feel Safe in your Home?: Yes Lack of Transportation: No Lack of Food: Never True Current Housing: I Have Housing Concerned About Future Housing: No Difficulty Paying Gas/Electric Bills: No Difficulty Paying for Meds: No Currently Unemployed: No Education: Master's Degree or Higher Difficulty w/ Childcare or Family Care: No Living arrangements: with family Additional living arrangements comments: 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 Gender identity (if verbalized by the patient): Female Sexual Orientation (if Verbalized by the Patient): Straight or Heterosexual Spiritual care concerns: No Meds Home Medications and Allergies Home Medications ?Medication ?Instructions ?Recorded ?Confirmed ?Type [id number] fum 65 mg 1 pkg PO DAILY 07/12/22 11/23/24 History iron-folic acid 1 mg-dha 250 mg oral whitney choline 11/05/24 11/23/24 History magnesium 11/05/24 11/23/24 History Allergies Allergy/AdvReac Type Severity Reaction Status Date / Time No Known Allergies Allergy Verified 12/04/24 19:31 Vital Signs Vital Signs - 24 hr 12/04/24 19:46 12/04/24 20:00 12/04/24 20:02 Pulse Rate 60 88 69 Blood Pressure 108/61 125/82 110/85 Pulse Oximetry 100 12/04/24 20:05 12/04/24 20:08 12/04/24 20:10 Pulse Rate 88 60 66 Blood Pressure 128/87 110/76 99/75 L Pulse Oximetry 100 100 12/04/24 20:12 12/04/24 20:15 12/04/24 20:18 Pulse Rate 56 L 61 67 Blood Pressure 118/74 119/60 116/68 Pulse Oximetry 99 12/04/24 20:20 12/04/24 20:22 12/04/24 20:25 Pulse Rate 60 70 59 L Blood Pressure 107/66 108/88 110/72 Pulse Oximetry 100 100 12/04/24 20:27 12/04/24 20:30 12/04/24 20:33 Pulse Rate 62 51 L 60 Blood Pressure 111/72 114/61 113/65 Pulse Oximetry 100 12/04/24 20:35 12/04/24 20:38 12/04/24 20:40 Pulse Rate 72 52 L 62 Blood Pressure 113/67 115/61 113/61 Pulse Oximetry 100 100 12/04/24 20:42 12/04/24 20:43 Pulse Rate 61 Blood Pressure 113/66 Pulse Oximetry 100 Exam Const: General: cooperative, healthy appearing, comfortable and no acute distress Orientation/consciousness: patient oriented x3 Resp: Effort & Inspection: normal respiratory effort Cardio: Rate: regular rate GI: GI Palp: No abdominal tenderness : Other: FHT's: 130's/ mod melody/ + accels/ no decels - cat 1 TOCO: ctxs q3-5min Cervix: 7.5/80/-1 Membranes: Intact Presentation: cephalic Skin: General skin exam: normal color Neuro: General: patient oriented x3 Extrem: General: normal to inspection Psych: Appearance: grossly normal Affect: normal affect Attitude: cooperative H&P: Results Labs Labs: Short CBC 12/04/24 Range/Units 19:18 WBC 9.2 (4.5-10.0) K/mm3 Hgb 12.5 (12.0-15.0) g/dL Hct 39.9 (37.0-47.0) % Plt Count 239 (150-375) k/mm3 Assessment and Plan Assessment and plan (1) Active labor at term: Status: Acute Plan - Admitted to L&D in active labor at term - S/p anesthesia consult and getting comfortable - continuous monitoring; reassuring - GBS negative - Will plan for AROM once epidural adequate - Pitocin augmentation if contractions space out, but anticipate delivery soon
[2024-12-04] MEDS: LACTATED RINGERS 500 ML 999 ML IV CONT (21:00)
--- NOTE | 2024-12-04 21:52 | PM.OBPNLAB ---
Pain Control Date/time seen: 12/04/24 21:52 Pain control: epidural Pelvic Exam Dilation (cm): 8 Effacement (%): 80 station: 0 Amniotic membrane status: Ruptured (AROM clear 2150) Contractions Monitor mode: External Status status: Category ll Comments: occasional mild late decel Assessment and Plan Assessment: active labor Plan: continuous present management
[2024-12-04] MEDS: LACTATED RINGERS 1,000 ML 125 ML IV CONT ×2 (22:00→23:01)
[2024-12-04] MEDS: ONDANSETRON INJ 4 MG/2 ML VIAL IV PUSH (22:00)
[2024-12-04] MEDS: OXYTOCIN 30 UNITS/NS 500 ML 30 UNITS/500 ML BAG 999 UNITS IV CONT (23:46)
[2024-12-05] VITALS (23 sets, daily range): BP systolic 77–122; BP diastolic 50–85; PULSE 28–144; RESP 16–18; TEMP 36.2–36.9; O2SAT 77–100
--- NOTE | 2024-12-05 00:03 | P.PCNOB_ITS ---
OB - Vaginal Delivery Note Procedure Delivery date: 12/05/24 Delivery augmentation: Rupture of Membranes Delivery monitor: External FHT and External Uterine Route of delivery: Episiotomy description: None Laceration Description: Perineal - 2nd Degree Delivery repair: vicryl Specimen: No Quantitative Blood Loss (ml): 100 Anesthesia type: Epidural Disposition: Floor Complications: No immediate complications [place] Baby Date of : 12/04/24 Time of : 23:46 Gestational Age by Date: 39 (.5) gender: Male Weight (pounds): 6 Weight (ounces): 13 presentation: vertex position: Left Occiput Anterior Placenta delivery description: Expressed Cord Vessel Description: 3 Vessels and Delayed Cord Clamping score one minute: 7 score five minutes: 9 Narrative: Chelsea rapidly progressed to complete dilation with strong desire to push. She pushed for approximately 5 contractions with good maternal effort and delivered the head over intact perineum. No nuchal cord was noted. She easily delivered the 's shoulders and body without complication. The inf ant was immediately placed skin to skin had spontaneous cry. His mouth and nose were bulb suction. Delayed cord clamping was performed. The umbilical cord was then doubly clamped and cut. Segment of cord was collected for cord gases. The remaining cord blood was collected for typing. With Pitocin running and gentle downward traction on the cord, the placenta delivered without complicat ion. Bimanual massage was performed and good uterine tone with minimal bleeding was noted. She was examined and a small second-degree perineal laceration was identified. The laceration was repaired in the normal manner using 2-0 Vicryl with good approximation and minimal bleeding. Her uterus remained firm with minimal bleeding. Sponge, lap, instrument, and needle counts were correct at the end the procedure. Mom and baby were left bonding in the birthing suite in stable condition.
[2024-12-05] MEDS: OXYTOCIN 30 UNITS/NS 500 ML 30 UNITS/500 ML BAG 125 UNITS IV CONT (00:25)
--- NOTE | 2024-12-05 02:22 | LDADM ---
This patient, Chelsea Siddiqi, was admitted to Labor/Delivery/Recovery 106 on 12/04/24 at 18:51. Plans for labor, pain management and were discussed with patient. Patient/family oriented to hospital policies and general routines including ID bracelet, bed and alarms, visiting hours, pain management, procedures, bathroom and other care routines, personal items, smoking policy, room service/diet and guest tray routines, infant security routines, and visiting hours. Patient/Family are encouraged to report perceived risks to care and to ask questions if they do not understand what they are told or what they should do. See OBIX for further documentation.
--- NOTE | 2024-12-05 04:58 | OBPPTRN ---
12/05/2024 at 0400. Patient transferred to post room #288 in wheelchair. Support person present. Patient oriented to unit, room, information board, rooming in, admission packet and security measures. Patient verbalizes understanding.
--- NOTE | 2024-12-05 10:19 | PM.OBPNVD ---
OB - PN: Subj Subjective Date/time seen: 12/05/24 10:19 Narrative: PPD#1 Chelsea reports doing well today. 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 Her pain is controlled. She is tolerating regular diet, voiding, passing gas, and ambulating without issues. She is breast feeding. She would like her son circumcised. OB - PN: Obj Data Labs 12/04/24 19:18 Labs: Laboratory Results - last 24 hr 12/04/24 19:18 WBC 9.2 RBC 4.57 Hgb 12.5 Hct 39.9 MCV 87.3 MCH 27.4 MCHC 31.3 L RDW 13.5 Plt Count 239 MPV 10.2 Immature Gran % (Auto) 0.3 Neut % (Auto) 68.2 Lymph % (Auto) 24.1 [place] % (Auto) 6.4 Eos % (Auto) 0.8 Baso % (Auto) 0.2 Lymph # (Auto) 2.22 [place] # (Auto) 0.6 Eos # (Auto) 0.1 Baso # (Auto) 0.0 Abs Immat Gran (auto) 0.03 Absolute Neuts (auto) 6.3 Absolute Nucleated RBC 0.000 Nucleated RBC % 0.0 Syphilis IgG/IgM Ab Non-reactive HIV 1&2 Ab/P24 Ag 4thGn Negative Blood Type O Positive Antibody Screen Negative OB - PN A/P Assessment and Plan (1) Normal vaginal delivery of second : Code(s): O80 - Encounter for full-term uncomplicated delivery Status: Acute Plan day: 1 Plan: routine care Comments: - PO pain meds - Regular diet - Ambulation and hydration encouraged - Continue putting baby to breast q2-3hr - circumcision performed w/o issue Time Spent With Patient Time: Total time spent is greater than 50% in coordination of care (as documented) at patient's floor/unit and/or counseling patient: Review of Systems Constitutional: Constitutional: Denies chills, Denies fever(s) and Denies headache(s) Eyes: Eyes: Denies change in vision ENT: Denies dizziness and Denies headache(s) Cardiovascular: Cardiovascular: Denies chest pain, Denies palpitations and Denies dyspnea Respiratory: Respiratory: Denies cough and Denies dyspnea Gastrointestinal: Gastrointestinal: Denies nausea and Denies vomiting Neurologic: Denies dizziness and Denies headache(s) Endocrine: Endocrine: Denies palpitations Exam Const: General: cooperative, healthy appearing, comfortable and no acute distress Orientation/consciousness: patient oriented x3 Resp: Effort & Inspection: normal respiratory effort Auscultation: clear to auscultation bilaterally Cardio: Rate: regular rate GI: Inspection: non-distended GI Palp: No abdominal tenderness and Yes Soft to palpation Auscultation: normal bowel sounds : Other: fundus firm Skin: General skin exam: normal color Neuro: General: patient oriented x3 Extrem: General: normal to inspection Psych: Appearance: grossly normal Affect: normal affect Attitude: cooperative
[2024-12-05] MEDS: POLYSACCHARIDE IRON COMPLEX 150 MG CAPSULE PO (10:30)
[2024-12-05] MEDS: BENZOCAINE 20% AER SPR (*SP) 56 GM CAN 1 SPRAY TOPICAL (13:34)
[2024-12-05] MEDS: WITCH HAZEL 40 PADS 1 PAD TOPICAL (13:35)
[2024-12-05] MEDS: LANOLIN (LANSINOH) 7.5 GM CREAM 1 APPLIC TOPICAL (13:35)
--- NOTE | 2024-12-05 15:59 | WPDANLDPN2 ---
Anes-Prog Note L&D Date/Time: 12/05/24 15:59 Comfortable throughout: labor and delivery Neuraxial method: epidural Epidural/Spinal procedure site: clean & non-tender Neuro status: Neuro function grossly intact. Cardiovascular status: normal Respiratory status: normal Airway patency: baseline Mental status: baseline Post-Op hydration status: normal Vital Signs: Last Vital Signs Temp 97.8 F 12/05/24 10:00 Pulse 57 L 12/05/24 10:00 Resp 18 12/05/24 10:00 BP 105/68 12/05/24 10:00 Pulse Ox 100 12/05/24 10:00 O2 Del Method Room Air 12/05/24 10:00 Pain score (VAS): 0 I/O: Intake & Output 12/04/24 12/05/24 12/05/24 23:59 07:59 15:59 Intake Total 1999 Balance 1999 500 Post-procedural complaints: none Patient feedback: Patient satisfied with anesthetic care.
[2024-12-06 00:40] VITALS: BP 92/62; PULSE 72; RESP 16; TEMP 36.9; O2SAT 97
[2024-12-06 05:23] LABS: Hematocrit 33.2 % (37.0-47.0); Hemoglobin 10.4 g/dL (12.0-15.0); Mean Corpuscular HGB Conc 31.3 g/dl (32-36); Mean Corpuscular Volume 89.5 fl (80-100); Mean Platelet Volume 10.4 fl (7.4-10.4); Platelet Count Result 185 k/mm3 (150-375); Red Blood Count 3.71 M/mm3 (4.2-5.4); Red Cell Distribution Width 13.7 % (11.5-14.5)
--- NOTE | 2024-12-06 07:22 | P.DS_ITS ---
DS: Admitting Diagnosis Discharge Date 12/06/24 Admitting Diagnosis Active labor at term DS: Discharge Diagnosis Discharge Diagnosis (1) Normal vaginal delivery of second : Code(s): O80 - Encounter for full-term uncomplicated delivery Status: Acute OB - DS: Summary OB Procedures : Ultrasound OB Procedures Intrapartum: Spontaneous Vag Delivery OB Procedures: : None Peripartum Data Infant Delivery Method: Natural Vaginal Laceration Description: Perineal - 2nd Degree Episiotomy description: None complications: none [place] 1: Gender: Male Disposition of : home Status at Discharge Functional status at discharge: independent ambulation Overall status at discharge: patient is back to baseline Time Spent with Patient Time attestation: Total time spent providing and/or coordinating discharge services: Exam Const: General: cooperative, healthy appearing, comfortable and no acute distress Orientation/consciousness: patient oriented x3 Resp: Effort & Inspection: normal respiratory effort Auscultation: clear to auscultation bilaterally Cardio: Rate: regular rate GI: Inspection: non-distended GI Palp: No abdominal tenderness and Yes Soft to palpation Auscultation: normal bowel sounds : Other: fundus firm Skin: General skin exam: normal color Neuro: General: patient oriented x3 Extrem: General: normal to inspection Psych: Appearance: grossly normal Affect: normal affect Attitude: cooperative DS: Data Data Completed and Pending Labs on day of discharge: Labs from last 24 hours 12/04/24 19:18 WBC 9.2 RBC 4.57 Hgb 12.5 Hct 39.9 MCV 87.3 MCH 27.4 MCHC 31.3 L RDW 13.5 Plt Count 239 MPV 10.2 Immature Gran % (Auto) 0.3 Neut % (Auto) 68.2 Lymph % (Auto) 24.1 [place] % (Auto) 6.4 Eos % (Auto) 0.8 Baso % (Auto) 0.2 Lymph # (Auto) 2.22 [place] # (Auto) 0.6 Eos # (Auto) 0.1 Baso # (Auto) 0.0 Abs Immat Gran (auto) 0.03 Absolute Neuts (auto) 6.3 Absolute Nucleated RBC 0.000 Nucleated RBC % 0.0 Syphilis IgG/IgM Ab Non-reactive HIV 1&2 Ab/P24 Ag 4thGn Negative Blood Type O Positive Antibody Screen Negative Discharge Plan Discharge Attending physician on discharge: Norma Frank Discharging Clinician: Norma Frank Anticipated Discharge Date/Time: 12/06/24 10:00 Patient Disposition: Home Activity: may shower and pelvic rest Diet: regular Patient Instructions: Vaginal Delivery (DC) Patient Language: [place] Citizen Stand Alone Forms: General Discharge Information Follow-up/Referrals: Norma Frank MD [Physician] - 4 Weeks Discharge Medications: New acetaminophen 325 mg Tablet 650 mg PO Q6H PRN (Reason: Mild Pain (1-3) Or Headache) Qty: 60 0RF docusate sodium 100 mg Capsule 100 mg PO BID PRN (Reason: Constipation) Qty: 90 0RF ibuprofen 600 mg Tablet 600 mg PO Q6H PRN (Reason: Cramping) Qty: 40 0RF Continued vit [id number] 65-1-250 mg combo pack 1 pkg PO DAILY magnesium 50 mg choline Date of admission: 12/04/24 18:51 Primary Care Provider: UNKNOWN,DOCTOR Admitting Provider: Ge Mae Attending physician on admission: eG Mae Condition: Stable
[2024-12-06 07:50] VITALS: BP 99/63; PULSE 62; RESP 18; TEMP 37.6; O2SAT 99
--- NOTE | 2024-12-06 08:45 | PC.NURSE ---
Reviewed standard discharge information with patient including monitoring for required output, transition of stools, feeding 8-12 times every 24 hours, milk production, and follow up at [facility] and with travel journalist in the first week of life. Parents are encouraged to take the feeding log and continue to track feedings and output for the first week . Offered outpatient resources with [facility] referral and Services at [facility]. She has a breast pump at home. Patient has the Mom/Baby Guide for further education and reference for common concerns, phone numbers, and guidance on when to call the doctor. A feeding plan was added to the ?s discharge plan. Patient states that she has no further questions or concerns regarding .???
[2024-12-07 10:19] VITALS: BP 104/66; PULSE 86; RESP 18; TEMP 36.9; O2SAT 100
== END 2024-12-06 10:57 | disposition home or self-care (01) | DRG 807 ==
LOC: ANHOB2 12-05 10:26 → ANHLDR 12-08 07:43
PROVIDERS: Admitting Provider Obstetrics & Gynecology; Visit Provider Obstetrics & Gynecology
DX: O70.1 Second degree perineal laceration during delivery (principal); Z37.0 Single live birth; Z3A.39 39 weeks gestation of pregnancy
CPT/HCPCS: 36415; 85025; 85027; 86593; 86703; 86850; 86900; 86901; A9270; G0432; J2405; J2590; J2795; J7120